=== PATIENT | female | born 1965 | race Caucasian/White ===

== ENCOUNTER → 2016-06-07 | Day surgery (SDC) | payer OTHER | LOC: RAD 08:39 | PROVIDERS: ATTEND Preventive Medicine Undersea and Hyperbaric Medicine | PROC: 05HB33Z Insertion of Infusion Device into Right Basilic Vein, Percutaneous Approach (ICD-10-PCS; principal; 2016-06-07) | DX: L97.424 Non-pressure chronic ulcer of left heel and midfoot with necrosis of bone (principal) | CPT/HCPCS: 36569; 77001; 76937; J1642 ==

== ENCOUNTER → 2016-06-10 | Outpatient (CLI) | payer OTHER | LOC: RAD 14:27 | PROVIDERS: ATTEND Preventive Medicine Undersea and Hyperbaric Medicine | DX: L97.424 Non-pressure chronic ulcer of left heel and midfoot with necrosis of bone (principal) | CPT/HCPCS: 82565; 73720; A9576 ==

== ENCOUNTER → 2016-06-11 | Outpatient (CLI) | payer OTHER ==
--- NOTE | 2016-06-12 12:27 | XCELERA REPORT ---
[address] [address] Lower Extremity Arterial Evaluation Name: RERE SLATER Age: 51 yrs Gender: Female : 1965 Patient Status: Outpatient Patient Location: Study Date: 06/11/2016 01:19 PM Procedure: A color flow and duplex scan of the lower extremity arteries was performed bilaterally with velocity and waveform anaylsis. Ankle brachial indicies performed. Reason For Study: CHRONIC ULCER LT HEEL/ MIDFOOT NECROSIS Ordering Physician: TOMAS HOWELL Performed By: Betty Phillips Measurements and Calculations Right Left OUTSIDE OPERATOR PSV 86.6 100.9 cm/sec Prox PFA PSV -51.9 -58.1 cm/sec Prox SFA PSV 64.6 83.3 cm/sec Mid SFA PSV -69.0 -111.4 cm/sec Dist SFA PSV -79.9 -98.7 cm/sec Prox Pop A PSV 49.2 80.0 cm/sec Dist AXEL PSV 56.9 108.6 cm/sec Dist WORKPLACE RELATIONS ADVISER PSV 59.0 106.4 cm/sec Anatoliy Pedis PSV 60.1 -92.6 cm/sec Right Side Arterial Evaluation Normal velocity, waveform and triphasic flow are present, from the Common Femoral artery down to the infrageniculate vessels. The ankle-brachial index is 1.20. 0 % stenosis is noted at the Femoral artery. Diffuse intimal calcification noted. Left Side Arterial Evaluation Normal velocity, waveform and triphasic flow are present, from the Common Femoral artery down to the infrageniculate vessels. The ankle-brachial index is 1.25. 0-19 % stenosis is noted at the Femoral artery. Diffuse intimal calcification noted. Interpretation Summary No hemodynamically significant lesions in the bilateral lower extremities, on duplex imaging, at rest. In spite of Physiologically normal study, diffuse intimal calcification is present suggesting arteriosclerosis. : TOMAS HOWELL > Francis hCavez
== END ==
LOC: SP 12:25
PROVIDERS: ATTEND Preventive Medicine Undersea and Hyperbaric Medicine
DX: L97.424 Non-pressure chronic ulcer of left heel and midfoot with necrosis of bone (principal)
CPT/HCPCS: 93925

== ENCOUNTER 2016-06-26 10:46 | Emergency (ER) | payer OTHER ==
[2016-06-26] MEDS ORDERED: DEXTROSE 50%-WATER 25 GM/50 ML DISP.SYRIN IV ONE (10:59)
--- NOTE | 2016-06-26 11:03 | ER Document Report ---
ED General - General Stated Complaint: ALTERED MENTAL STATUS Time seen by provider: 11:00 Mode of Arrival: Medic Information source: Emergency Med Personnel Notes: 51-year-old female with a history of diabetes, left diabetic foot ulcer ( currently receiving hyperbaric treatments and IV antibiotics), orthostatic hypotension, bipolar affective disorder. The patient was on her way to the wound care clinic. She became unresponsive in the car in the parking lot. EMS was called to the scene and the patient had a fingerstick of 83. Patient was given half amp of D50 and transported to the ER. She continues to have an altered mental status. Primary care physician: [facility] TRAVEL OUTSIDE OF THE [place] IN LAST 30 DAYS: No - HPI Onset: Just prior to arrival Onset/Duration: Sudden Quality of pain: No pain Severity: None Pain Level: Denies Associated symptoms: Weakness. denies: Chills, Fever Exacerbated by: Denies Relieved by: Denies Similar symptoms previously: Yes Recently seen / treated by doctor: Yes - Related Data Allergies/Adverse Reactions: amoxicillin Allergy (Verified 06/26/16 11:14) clindamycin Allergy (Verified 06/26/16 11:14) Penicillins Allergy (Verified 06/26/16 11:14) Past Medical History - General Information source: Patient - Social History Smoking Status: Current Every Day Smoker Cigarette use (# per day): Yes - 1 pack per day Chew tobacco use (# tins/day): No Smoking Education Provided: No Frequency of alcohol use: None Drug Abuse: None Lives with: Family Family History: Reviewed & Not Pertinent Patient has suicidal ideation: No Patient has homicidal ideation: No - Past Medical History Cardiac Medical History: Denies: Hx Coronary Artery Disease, Hx Heart Attack, Hx Hypertension Pulmonary Medical History: Reports: Hx Pneumonia Denies: Hx Asthma, Hx Bronchitis, Hx COPD Neurological Medical History: Reports: Hx Seizures - "hypoglycemic seizure". Denies: Hx Cerebrovascular Accident Endocrine Medical History: Reports: Hx Diabetes Mellitus Type 2 Renal/ Medical History: Reports: Other - Chronic kidney disease Malignancy Medical History: Reports: None GI Medical History: Reports: None Musculoskeltal Medical History: Denies Hx Arthritis Skin Medical History: Reports None Psychiatric Medical History: Reports: None Traumatic Medical History: Reports: None Infectious Medical History: Reports: None Past Surgical History: Reports: Other - Left foot surgery Review of Systems - Review of Systems Notes: Review of systems: Constitutional: Denies fever, chills. EENT: Denies ear pain, sinus tenderness, throat pain, throat swelling. Cardiovascular: Denies chest pain, palpitations, dyspnea or edema. Respiratory: Denies wheezing, cough, hemoptysis. Abdomen: Denies abdominal pain, nausea, vomiting, diarrhea. Denies BRBPR or melena. Genitourinary: Denies dysuria, pyuria, hematuria, flank pain. Musculoskeletal: denies joint pain or swelling, denies back pain. Neurologic: See H&P Skin: Denies rash, lesions. Constitutional: denies: Chills, Fever Physical Exam - Vital signs Vitals: Pulse Resp BP Pulse Ox 81 14 132/79 H 98 06/26/16 10:52 06/26/16 10:52 06/26/16 10:52 06/26/16 10:52 Notes: Physical exam: GENERAL: 51-year-old female, altered mental status: nonverbal. The patient will open her eyes on command. The patient will move all 4 extremities on command. Fingerstick is 65. HEAD: Atraumatic, normocephalic. EYES: Pupils equal round and reactive to light, extraocular movements intact, sclera anicteric, conjunctiva are normal. ENT: TMs normal, nares patent, oropharynx clear without exudates. Moist mucous membranes. NECK: Normal range of motion, supple without lymphadenopathy or JVD. LUNGS: Breath sounds clear to auscultation bilaterally and equal. No wheezes rales or rhonchi. HEART: Regular rate and rhythm without murmurs, rubs or gallops. ABDOMEN: Soft, normoactive bowel sounds. No tenderness to palpation. No guarding, no rebound. No masses appreciated. EXTREMITIES: Normal range of motion, no pitting or edema. No clubbing or cyanosis. NEUROLOGICAL: Cranial nerves II through XII grossly intact. Normal speech, normal gait. PSYCH: Normal mood, normal affect. SKIN: Warm, Dry, normal turgor, no rashes or lesions noted. Course - Vital Signs Vital signs: Temp Pulse Resp BP Pulse Ox 81 13 172/103 H 97 06/26/16 10:52 06/26/16 17:01 06/26/16 17:01 06/26/16 17:01 - Laboratory Result Diagrams: 06/26/16 11:15 06/26/16 11:15 Laboratory results interpreted by me: 06/26/16 06/26/16 06/26/16 10:57 11:15 11:15 Hgb 10.6 L Hct 33.2 L RDW 17.1 H Est GFR (Non-Af Amer) 58 L Glucose 163 H POC Glucose 65 L Total Protein 6.1 L Albumin 2.8 L - Diagnostic Test Radiology reviewed: Image reviewed, Reports reviewed - CT shows no acute bleed or stroke. Chest x-ray shows no infiltrates or effusions. - EKG Interpretation by Me Rate: Normal Rhythm: NSR - EKG shows normal sinus rhythm with a ventricular rate of 79, no acute ST-T wave changes. Discharge - Discharge Clinical Impression: hypoglycemic episode, Pre hypertension Condition: Stable Disposition: HOME, SELF-CARE Additional Instructions: Recommendations: Rest, drink plenty of fluids, advance diet as tolerated. Continue current medicines. Follow-up with [facility] as planned: Bring a copy of today's labs with you when you go. As we discussed, your blood pressure was elevated in the ER. You are prone to episodes of low blood pressure so that a blood pressure medicine may not be right for you (it may cause more problems than benefits), follow-up with your primary care doctor for repeat blood pressure check and you can discuss it with the doctor at the time. Forms: Elevated Blood Pressure Referrals: SAFIA MCDONNELL PA [Primary Care Provider] - Follow up in 3-5 days
[2016-06-26 11:32] LABS: ABSOLUTE EOSINOPHILS # (AUTO) 0.1 10^3/uL (0.0-0.6); ABSOLUTE LYMPHOCYTES (AUTO) 1.1 10^3/uL (0.5-4.7); ABSOLUTE MONOCYTES (AUTO) 0.5 10^3/uL (0.1-1.4); BASOPHILS % (AUTO) 0.9 % (0-2); EOSINOPHILS % (AUTO) 2.2 % (0-6); HEMATOCRIT 33.2 % (36.0-47.0); HEMOGLOBIN 10.6 g/dL (12.0-15.5); HGB HCT DIFFERENCE -1.4; LYMPHOCYTES % (AUTO) 19.1 % (13-45); MEAN CORPUSCULAR VOLUME 84 fl (80-97); MONOCYTES % (AUTO) 8.3 % (3-13); RED BLOOD COUNT 3.94 10^6/uL (3.72-5.28); RED CELL DISTRIBUTION WIDTH 17.1 % (11.5-14.0); SEGMENTED NEUTROPHILS % (AUTO) 69.5 % (42-78); WHITE BLOOD COUNT 5.7 10^3/uL (4.0-10.5)
[2016-06-26 11:50] LABS: ALANINE AMINOTRANSFERASE 13 U/L (9-52); ALBUMIN 2.8 g/dL (3.5-5.0); ALKALINE PHOSPHATASE 86 U/L (38-126); ANION GAP 9 (5-19); ASPARTATE AMINO TRANSFERASE 17 U/L (14-36); BILIRUBIN,TOTAL 0.4 mg/dL (0.2-1.3); BLOOD UREA NITROGEN 11 mg/dL (7-20); CALCIUM 8.8 mg/dL (8.4-10.2); CARBON DIOXIDE 26 mmol/L (22-30); CHLORIDE 105 mmol/L (98-107); CREATINE KINASE 43 U/L (30-135); GLUCOSE 163 mg/dL (75-110); SODIUM 139.9 mmol/L (137-145); TOTAL PROTEIN 6.1 g/dL (6.3-8.2)
[2016-06-26] MEDS ORDERED: NORMAL SALINE 1000 ML 1,000 ML IV PRN (12:39)
[2016-06-26 12:53] LABS: CREATINE KINASE MB 1.91 ng/mL (<4.55)
[2016-06-26 12:56] LABS: TROPONIN I < 0.012 ng/mL
[2016-06-26 17:17] VITALS: BP 172/103
--- NOTE | 2016-06-27 08:16 | EKG REPORT ---
SEVERITY:- BORDERLINE ECG - SINUS RHYTHM BORDERLINE T ABNORMALITIES, INFERIOR LEADS BORDERLINE PROLONGED QT INTERVAL : Confirmed by: Alexsandra Wong MD 27-Jun-2016 08:16:06
== END 2016-06-26 17:19 | disposition home or self-care (01) ==
LOC: ER 10:46
DX: E11.649 Type 2 diabetes mellitus with hypoglycemia without coma (principal); R03.0 Elevated blood-pressure reading, without diagnosis of hypertension; R41.82 Altered mental status, unspecified; R53.1 Weakness; F17.210 Nicotine dependence, cigarettes, uncomplicated; N18.9 Chronic kidney disease, unspecified; Z88.0 Allergy status to penicillin; Z88.3 Allergy status to other anti-infective agents
CPT/HCPCS: 93005; 99285; 96374; 36415; 82553; 82962; 82550; 85025; 80053; 84484; 71010; 70450; 93010; J3490

== ENCOUNTER 2016-07-03 13:41 | Emergency (ER) | payer OTHER ==
[2016-07-03 13:47] VITALS: BP 94/60
--- NOTE | 2016-07-03 13:51 | ER Document Report ---
ED Medical Screen (RME) - General Stated Complaint: BLOOD PRESSURE PROBLEM Notes: 51 yo female sent from ambulatory surgery for low blood pressure. pt was to receive antibiotics for wound on left foot. Dr Manley told nurse not to give abx because of HTN and have pt evaluated in ED. pt feeling light headed, denies pain. no vomiting. Pt has DM. [facility] TRAVEL OUTSIDE OF THE [place] IN LAST 30 DAYS: No - Related Data Allergies/Adverse Reactions: clindamycin Allergy (Verified 06/26/16 11:14) Past Medical History - Past Medical History Cardiac Medical History: Denies: Hx Coronary Artery Disease, Hx Heart Attack, Hx Hypertension Pulmonary Medical History: Reports: Hx Pneumonia Denies: Hx Asthma, Hx Bronchitis, Hx COPD Neurological Medical History: Reports: Hx Seizures - "hypoglycemic seizure". Denies: Hx Cerebrovascular Accident Endocrine Medical History: Reports: Hx Diabetes Mellitus Type 1 Musculoskeltal Medical History: Denies Hx Arthritis Psychiatric Medical History: Reports: Hx Bipolar Disorder, Hx Depression Past Surgical History: Reports: Hx Vascular Surgery - RUE Picc Physical Exam - Vital signs Vitals: Temp Pulse Resp BP Pulse Ox 97.8 F 85 18 94/60 L 100 07/03/16 13:45 07/03/16 13:45 07/03/16 13:45 07/03/16 13:45 07/03/16 13:45 Course - Vital Signs Vital signs: Temp Pulse Resp BP Pulse Ox 97.8 F 85 18 94/60 L 100 07/03/16 13:45 07/03/16 13:45 07/03/16 13:45 07/03/16 13:45 07/03/16 13:45
[2016-07-03 14:22] LABS: ABSOLUTE MONOCYTES (AUTO) 0.4 10^3/uL (0.1-1.4); HEMOGLOBIN 10.5 g/dL (12.0-15.5)
[2016-07-03 14:27] LABS: ALANINE AMINOTRANSFERASE 25 U/L (9-52); ALBUMIN 3.4 g/dL (3.5-5.0); ALKALINE PHOSPHATASE 124 U/L (38-126); ANION GAP 11 (5-19); ASPARTATE AMINO TRANSFERASE 16 U/L (14-36); BILIRUBIN,TOTAL 0.5 mg/dL (0.2-1.3); BLOOD UREA NITROGEN 16 mg/dL (7-20); CALCIUM 9.3 mg/dL (8.4-10.2); CARBON DIOXIDE 27 mmol/L (22-30); CHLORIDE 100 mmol/L (98-107); CREATININE RESULT 1.24 mg/dL (0.52-1.25); GLUCOSE 221 mg/dL (75-110); POTASSIUM 4.9 mmol/L (3.6-5.0); SODIUM 138.2 mmol/L (137-145); TOTAL PROTEIN 6.8 g/dL (6.3-8.2)
[2016-07-03 14:44] LABS: ABSOLUTE BASOPHILS # (AUTO) 0.1 10^3/uL (0.0-0.2); ABSOLUTE EOSINOPHILS # (AUTO) 0.2 10^3/uL (0.0-0.6); ABSOLUTE LYMPHOCYTES (AUTO) 1.8 10^3/uL (0.5-4.7); ABSOLUTE NEUT (AUTO) 3.8 10^3/uL (1.7-8.2); EOSINOPHILS % (AUTO) 3.3 % (0-6); HEMATOCRIT 32.8 % (36.0-47.0); HGB HCT DIFFERENCE -1.3; LYMPHOCYTES % (AUTO) 28.9 % (13-45); MEAN CORPUSCULAR HEMOGLOBIN 27.2 pg (27.0-33.4); MEAN CORPUSCULAR HGB CONC 32.2 g/dL (32.0-36.0); MEAN CORPUSCULAR VOLUME 85 fl (80-97); MONOCYTES % (AUTO) 6.5 % (3-13); RED BLOOD COUNT 3.88 10^6/uL (3.72-5.28); RED CELL DISTRIBUTION WIDTH 17.2 % (11.5-14.0); SEGMENTED NEUTROPHILS % (AUTO) 60.3 % (42-78); WHITE BLOOD COUNT 6.3 10^3/uL (4.0-10.5)
[2016-07-03] MEDS ORDERED: NORMAL SALINE 1000 ML 1,000 ML IV ONE (16:16)
--- NOTE | 2016-07-03 16:23 | ER Document Report ---
ED Blood Pressure Problem - General Chief Complaint: Low Blood Pressure Stated Complaint: BLOOD PRESSURE PROBLEM Time seen by provider: 16:17 Mode of Arrival: Wheelchair Information source: Patient Notes: 51-year-old female presents to ED for low blood pressure. She states she was sent by [facility] surgery for low blood pressure states she cannot get her antibiotics for her foot ulcer due to her blood pressure being too low. She states she has been lightheaded at times no nausea no vomiting states she's taken her medicines as appropriate. TRAVEL OUTSIDE OF THE [place] IN LAST 30 DAYS: No - HPI Patient complains to provider of: Low blood pressure Onset: Other - Last couple days Onset/Duration: Intermittent Quality of pain: No pain Severity: None Pain Level: Denies Pt currently taking medication for problem: No - states she sometimes has high blood pressure pressure sometimes she has low Associated symptoms: Dizziness Similar symptoms previously: Yes Recently seen / treated by doctor: Yes - Related Data Allergies/Adverse Reactions: clindamycin Allergy (Verified 07/03/16 13:47) Past Medical History - General Information source: Patient - Social History Smoking Status: Never Smoker Chew tobacco use (# tins/day): No Frequency of alcohol use: None Drug Abuse: None Lives with: Family Family History: Reviewed & Not Pertinent Patient has suicidal ideation: No Patient has homicidal ideation: No - Past Medical History Cardiac Medical History: Reports: None Pulmonary Medical History: Reports: Hx Pneumonia EENT Medical History: Reports: None Neurological Medical History: Reports: Hx Seizures - "hypoglycemic seizure" Endocrine Medical History: Reports: Hx Diabetes Mellitus Type 1 Renal/ Medical History: Reports: None Malignancy Medical History: Reports: None GI Medical History: Reports: None Musculoskeltal Medical History: Reports None Skin Medical History: Reports Other - Diabetic ulcer to the left foot on room back at this time Psychiatric Medical History: Reports: Hx Bipolar Disorder, Hx Depression Traumatic Medical History: Reports: None Infectious Medical History: Reports: None Past Surgical History: Reports: Hx Vascular Surgery - RUE Picc Review of Systems - Review of Systems Constitutional: No symptoms reported EENT: No symptoms reported Cardiovascular: Dizziness, Other - Low blood pressure Respiratory: No symptoms reported Gastrointestinal: No symptoms reported Genitourinary: No symptoms reported Female Genitourinary: No symptoms reported Musculoskeletal: No symptoms reported Skin: No symptoms reported Hematologic/Lymphatic: No symptoms reported Neurological/Psychological: No symptoms reported -: Yes All other systems reviewed and negative Physical Exam - Vital signs Vitals: Temp Pulse Resp BP Pulse Ox 97.8 F 85 18 94/60 L 100 07/03/16 13:45 07/03/16 13:45 07/03/16 13:45 07/03/16 13:45 07/03/16 13:45 Interpretation: Hypotensive Notes: Blood pressure 103/67 pulse 83 pulse ox 100% temp 97.6 respirations 20 - General General appearance: Appears well, Alert - HEENT Head: Normocephalic, Atraumatic Eyes: Normal Pupils: PERRL - Respiratory Respiratory status: No respiratory distress Chest status: Nontender Breath sounds: Normal Chest palpation: Normal - Cardiovascular Rhythm: Regular Heart sounds: Normal auscultation Murmur: No - Abdominal Inspection: Normal Distension: No distension Bowel sounds: Normal Tenderness: Nontender Organomegaly: No organomegaly - Back Back: Normal, Nontender - Extremities General upper extremity: Normal inspection, Nontender, Normal color, Normal ROM , Normal temperature General lower extremity: Normal inspection, Nontender, Normal color, Normal ROM , Normal temperature, Normal weight bearing. No: Araceli's sign - Neurological Neuro grossly intact: Yes Cognition: Normal Orientation: AAOx4 [place] Coma Scale Eye Opening: Spontaneous Lillie Coma Scale Verbal: Oriented [place] Coma Scale Motor: Obeys Commands Lillie Coma Scale Total: 15 Speech: Normal Motor strength normal: LUE, RUE, LLE, RLE Sensory: Normal - Psychological Associated symptoms: Normal affect, Normal mood - Skin Skin Temperature: Warm Skin Moisture: Dry Skin Color: Normal Course - Re-evaluation Re-evalutation: 07/03/16 18:47 Discussed the residual urine with Dr. Braxton. Patient had some 750 mL of urine after voiding. Dr Braxton discussed the patient follow-up with his primary doctor in the morning to decide whether they wanted to do self-catheterization or a Muñoz. We'll send a copy of labs home with patient to follow-up - Vital Signs Vital signs: Temp Pulse Resp BP Pulse Ox 97.8 F 85 18 94/60 L 100 07/03/16 13:45 07/03/16 13:45 07/03/16 13:45 07/03/16 13:45 07/03/16 13:45 - Laboratory Result Diagrams: 07/03/16 13:50 07/03/16 13:50 Laboratory results interpreted by me: 07/03/16 07/03/16 07/03/16 13:50 13:50 18:21 Hgb 10.5 L Hct 32.8 L RDW 17.2 H Est GFR ( Amer) 55 L Est GFR (Non-Af Amer) 45 L Glucose 221 H Albumin 3.4 L Urine Glucose (UA) >=500 H Discharge - Discharge Clinical Impression: Urinary retention Hypotension Qualifiers: Hypotension type: unspecified hypotension type Qualified Code(s): I95.9 - Hypotension, unspecified Condition: Stable Disposition: HOME, SELF-CARE Additional Instructions: Hypotension Your blood pressure is low. Low blood pressure can make you feel weak, lightheaded, and even make you pass out. Low blood pressure can be caused by dehydration or blood loss. Problems with the heart, kidneys, or blood vessels can cause hypotension. Certain medications can make your blood pressure abnormally low. Infection can lower blood pressure. In many cases, the person is totally healthy, but for unknown reasons, the blood pressure falls when they stand up. This is called benign orthostatic hypotension. The treatment of low blood pressure depends on the severity of the symptoms , and on the underlying cause. Sometimes it's not possible to identify a cause. At this time, it doesn't appear that the problem is serious enough to require hospitalization. Medicines that could be contributing to the problem can be withheld or reduced in dosage if your doctor approves. Get plenty of fluids. Eat a healthy diet. Be careful to stand up slowly. If you feel suddenly lightheaded or if your vision goes marx, sit or lie down at once. Don't drive or operate machinery until the symptoms are under control. Return or call the doctor if you develop fainting or severe dizziness, severe weakness, problems with vision, chest pain, shortness of breath, fever, or confusion. Urinary Retention Urinary retention is inability to empty the bladder. It can result from a urine infection, or from mechanical problems such as an enlarged prostate gland or swelling of the urethra. Drugs or alcohol can also lead to urine retention. The condition is usually treated by passage of a catheter. If the physician thinks the problem will continue, the catheter may be left in place for a few days. Sometimes drugs are used to stimulate the bladder if the physician feels that inadequate bladder contraction is the cause. If the condition leading to the retention is a chronic one, such as an enlarged prostate, you will be referred to a specialist for further care. Call the physician or return if you develop fever, flank or back pain, pain on urination, or recurrent difficulty passing the urine. FOLLOW-UP CARE: If you have been referred to a physician for follow-up care, call the physician s office for an appointment as you were instructed or within the next two days. If you experience worsening or a significant change in your symptoms, notify the physician immediately or return to the Emergency Department at any time for re-evaluation.
[2016-07-03 19:01] LABS: APPEARANCE,URINE SLIGHTLY-CLOUDY; BILIRUBIN,URINE NEGATIVE (NEGATIVE); GLUCOSE, URINE >=500 mg/dL (NEGATIVE); KETONES,URINE NEGATIVE (NEGATIVE); LEUKOCYTE ESTERASE,URINE NEGATIVE (NEGATIVE); NITRITE,URINE NEGATIVE (NEGATIVE); PROTEIN,URINE NEGATIVE (NEGATIVE); URINE SPECIFIC GRAVITY 1.006; UROBILINOGEN,URINE NEGATIVE mg/dL (<2.0)
== END 2016-07-03 19:34 | disposition home or self-care (01) ==
LOC: ER 13:41
DX: R33.9 Retention of urine, unspecified (principal); I95.9 Hypotension, unspecified; R42 Dizziness and giddiness; E10.9 Type 1 diabetes mellitus without complications
CPT/HCPCS: 99284; 96360; 51701; 36415; 85025; 80053; 81001; J7030

== ENCOUNTER → 2016-07-16 | Outpatient (CLI) | payer OTHER | LOC: EDBD → RAD 14:25 | PROVIDERS: ATTEND Preventive Medicine Undersea and Hyperbaric Medicine | DX: E11.621 Type 2 diabetes mellitus with foot ulcer (principal); L97.522 Non-pressure chronic ulcer of other part of left foot with fat layer exposed ==

== ENCOUNTER → 2016-08-14 | Outpatient (CLI) | payer OTHER | LOC: RAD 12:34 | PROVIDERS: ATTEND Preventive Medicine Undersea and Hyperbaric Medicine | DX: L97.522 Non-pressure chronic ulcer of other part of left foot with fat layer exposed (principal) ==

== ENCOUNTER → 2016-10-03 | Outpatient (CLI) | payer OTHER ==
[2016-10-03 11:03] LABS: ABSOLUTE EOSINOPHILS # (AUTO) 0.2 10^3/uL (0.0-0.6); ABSOLUTE LYMPHOCYTES (AUTO) 1.4 10^3/uL (0.5-4.7); ABSOLUTE MONOCYTES (AUTO) 0.4 10^3/uL (0.1-1.4); ABSOLUTE NEUT (AUTO) 3.7 10^3/uL (1.7-8.2); BASOPHILS % (AUTO) 0.7 % (0-2); EOSINOPHILS % (AUTO) 2.7 % (0-6); HEMATOCRIT 33.7 % (36.0-47.0); HEMOGLOBIN 10.4 g/dL (12.0-15.5); HGB HCT DIFFERENCE -2.5; LYMPHOCYTES % (AUTO) 24.4 % (13-45); MEAN CORPUSCULAR HEMOGLOBIN 25.5 pg (27.0-33.4); MEAN CORPUSCULAR VOLUME 82 fl (80-97); MONOCYTES % (AUTO) 6.7 % (3-13); SEGMENTED NEUTROPHILS % (AUTO) 65.5 % (42-78); WHITE BLOOD COUNT 5.7 10^3/uL (4.0-10.5)
[2016-10-03 11:25] LABS: ALANINE AMINOTRANSFERASE 25 U/L (9-52); ALBUMIN 3.5 g/dL (3.5-5.0); ALKALINE PHOSPHATASE 118 U/L (38-126); ANION GAP 9 (5-19); ASPARTATE AMINO TRANSFERASE 19 U/L (14-36); BILIRUBIN,DIRECT 0.3 mg/dL (0.0-0.4); BILIRUBIN,TOTAL 0.5 mg/dL (0.2-1.3); BLOOD UREA NITROGEN 26 mg/dL (7-20); C-REACTIVE PROTEIN 13.4 mg/L (<10.0); CALCIUM 9.5 mg/dL (8.4-10.2); CARBON DIOXIDE 25 mmol/L (22-30); CHLORIDE 107 mmol/L (98-107); CREATININE RESULT 1.22 mg/dL (0.52-1.25); GLUCOSE 237 mg/dL (75-110); POTASSIUM 4.9 mmol/L (3.6-5.0); SODIUM 140.9 mmol/L (137-145); TOTAL PROTEIN 7.5 g/dL (6.3-8.2)
[2016-10-03 11:41] LABS: ERYTHROCYTE SEDIMENTATION RATE 50 mm/hr (0-30)
== END ==
LOC: WC 10:08
PROVIDERS: ATTEND Nurse Practitioner Family
DX: E11.621 Type 2 diabetes mellitus with foot ulcer (principal); L97.422 Non-pressure chronic ulcer of left heel and midfoot with fat layer exposed
CPT/HCPCS: 36415; 80053; 83036; 85025; 85652; 86140

== ENCOUNTER → 2016-10-09 | Outpatient (CLI) | payer OTHER ==
--- NOTE | 2016-10-09 14:00 | RADIOLOGY REPORT (SQ) ---
EXAM DESCRIPTION: FOOT LEFT COMPLETE COMPLETED DATE/TIME: 10/09/2016 12:45 pm REASON FOR STUDY: NON-PRS CHR ULCER OF LEFT HEEL AND MIDFOOT W FAT LAYER EXPOS (L97.422) COMPARISON: 08/14/2016. NUMBER OF VIEWS: Three views of the left foot. LIMITATIONS: Limiting external artifact. Bone detail obscured. FINDINGS: Osteopenia. No gross fracture, subluxation or dislocation. Persistent presumed ulcer and gas in the soft tissues underlying the calcaneus. Mild overlying periosteal reaction is suggested c onsistent with chronic osteomyelitis. Doubt progressive bone loss. OTHER: No other significant finding. IMPRESSION: As above. TECHNICAL DOCUMENTATION: JOB ID: [id number]
== END ==
LOC: RAD 12:27
PROVIDERS: ATTEND Nurse Practitioner Family
DX: L97.422 Non-pressure chronic ulcer of left heel and midfoot with fat layer exposed (principal); M85.872 Other specified disorders of bone density and structure, left ankle and foot

== ENCOUNTER → 2016-10-22 | Outpatient (CLI) | payer OTHER ==
--- NOTE | 2016-10-22 13:16 | RADIOLOGY REPORT (SQ) ---
EXAM DESCRIPTION: MRI LT LOWER EXTREMITY WITHOUT COMPLETED DATE/TIME: 10/22/2016 11:57 am REASON FOR STUDY: NON-PRESSURE CHRONIC ULCER OF LEFT HEEL COMPARISON: MRI 06/10/2016 LEFT FOOT FILMS 10/09/2016, 08/14/2016, 07/16/2016 TECHNIQUE: MRI of the left calcaneus was performed with axial coronal and sagittal T1 and fat-sat T2 images LIMITATIONS: None. FINDINGS: Along the medial left heel soft tissues, an ulcer with a overlying bandages present. Ulce r measures about 3 x 4 cm in size. Deep to the ulcer, a 2.6 cm diameter area of bony erosion is seen along the cortex of the calcaneus. This extends into the medial edge of the Achilles attachment and medial most edge of the plantar fascia attachment. Deep to the calcaneal bony erosion there is martha a throughout the posterior half of the calcaneus, similar in extent as compared to 06/10/2016. There is a small amount of fluid in the posterior subtalar joint, and physiologic fluid in the tibiot alar joint. Small amount of fluid in the retrocalcaneal bursa. No other bony edema worrisome for os teomyelitis. No soft tissue abscess or fluid collection. Incidental finding of a longitudinal split in the peroneus brevis tendon proximal to, at the level of , and just distal to the lateral malleolus. There is also posterior tibial tendinopathy distal to th e medial malleolus, from the malleolus to the navicular. IMPRESSION: Persistent left heel soft tissue ulcer with underlying bony erosion of the cortical surf beni of the calcaneus. Amount of calcaneal marrow edema is similar compared to territory. TECHNICAL DOCUMENTATION: JOB ID: [id number] [employer]- All Rights Reserved
== END ==
LOC: RAD 09:56
PROVIDERS: ATTEND Preventive Medicine Undersea and Hyperbaric Medicine
DX: L97.423 Non-pressure chronic ulcer of left heel and midfoot with necrosis of muscle (principal)

== ENCOUNTER → 2016-12-12 | Outpatient (CLI) | payer OTHER ==
--- NOTE | 2016-12-13 12:06 | WOMENS IMAGING REPORT ---
EXAM DESCRIPTION: BILAT SCREENING MAMMO W/CAD COMPLETED DATE/TIME: 12/12/2016 1:32 pm REASON FOR STUDY: SCREENING MAMMO Z12.31 ENCNTR SCREEN MAMMOGRAM FOR MALIGNANT NEOPLASM OF SABRINA COMPARISON: None. TECHNIQUE: Standard craniocaudal and mediolateral oblique views of each breast recorded using digita l acquisition. LIMITATIONS: None. FINDINGS: No masses, calcifications or architectural distortion. No areas of suspicion. Read with the assistance of CAD. .[facility] - R2 Cenova Version 1.3 .[facility] - R2 Cenova Version 1.3 .[facility] - R2 Cenova Version 2.4 .[facility] - R2 Cenova Version 2.4 .[facility] - R2 [employer] Version 9.2 IMPRESSION: NORMAL MAMMOGRAM. BIRADS 1. BREAST DENSITY: b. There are scattered areas of fibroglandular density. BIRAD: 1 NEGATIVE RECOMMENDATION: ROUTINE SCREENING COMMENT: The patient has been notified of the results by letter per SA requirements. Additional no tification policies are in place for contacting patient with suspicious or incomplete findings. Quality ID #[id number]: The [employer] recommends an annual screening mammogram for women aged 40 years or over. This facility utilizes a reminder system to ensure that all patients receive reminder letters, and/or direct phone calls for appointments. This includes reminders for routine scr eening mammograms, diagnostic mammograms, or other Breast Imaging Interventions when appropriate. Th is patient will be placed in the appropriate reminder system. The [employer] (A[employer]) has developed recommendations for screening MRI of the breast s in certain patient populations, to be used in conjunction with mammography. Breast MRI surveillanc e may be appropriate for women with more than 20% lifetime risk of developing breast cancer as deter mined by genetic testing, significant family history of the disease, or history of mantle radiation f or Hodgkins Disease. ACR Practice Guidelines 2008. TECHNICAL DOCUMENTATION: FINDING NUMBER: (1) ASSESSMENT: (1) JOB ID: [id number] [email or web address]- All Rights Reserved
== END ==
LOC: WI 12:37
PROVIDERS: ATTEND Physician Assistant
DX: Z12.31 Encounter for screening mammogram for malignant neoplasm of breast (principal)
CPT/HCPCS: 77067; G0202

== ENCOUNTER → 2017-05-27 | Outpatient (CLI) | payer OTHER ==
--- NOTE | 2017-05-27 13:17 | RADIOLOGY REPORT (SQ) ---
EXAM DESCRIPTION: FOOT LEFT COMPLETE COMPLETED DATE/TIME: 05/27/2017 12:46 pm REASON FOR STUDY: ULCER FOOT WITH DIABETES (E11.621) E11.621 TYPE 2 DIABETES MELLITUS WITH FOOT ULC ER COMPARISON: 08/14/2016, 10/09/2016 left foot films NUMBER OF VIEWS: Three views. TECHNIQUE: AP, lateral and oblique radiographic images acquired of the left foot. LIMITATIONS: None. FINDINGS: MINERALIZATION: Osteoporotic BONES: There is a healing stress fracture of the midshaft 2nd metatarsal with surrounding bony bridgi ng callus. Patient has a 6 to 7 cm plantar calcaneal ulcer with calcaneal bony surface exposed. Since the prior plain films in 10/09/2016, patient appears to have undergone a bone biopsy with lucency in the calcan eus on lateral view. There is bony sclerosis along the plantar aspect of the calcaneus deep to the u lcer. Further resorption of the plantar calcaneal weight-bearing surface has occurred since since 10/09/2016. JOINTS: No effusions. SOFT TISSUES: Plantar soft tissue ulcer over the calcaneus, with bone exposed. OTHER: No other significant finding. IMPRESSION: Persistent plantar calcaneal ulcer with sclerosis and bony resorption of the weight-bear ing plantar surface calcaneus Healing 2nd metatarsal stress fracture TECHNICAL DOCUMENTATION: JOB ID: [id number] [employer]- All Rights Reserved
== END ==
LOC: RAD 12:13
PROVIDERS: ATTEND Preventive Medicine Undersea and Hyperbaric Medicine
DX: E11.621 Type 2 diabetes mellitus with foot ulcer (principal); M84.375D Stress fracture, left foot, subsequent encounter for fracture with routine healing

== ENCOUNTER 2017-10-08 20:14 | Emergency (ER) | payer OTHER ==
[2017-10-08] MEDS ORDERED: CIPROFLOXACIN HCL 500 MG TABLET PO ONE (23:43)
[2017-10-08] MEDS ORDERED: DOXYCYCLINE HYCLATE 100 MG TABLET PO ONE (23:43)
--- NOTE | 2017-10-08 23:46 | ER Document Report ---
ED General - General Chief Complaint: Wound Infection Stated Complaint: POSSIBLE INFECTION Time Seen by Provider: 10/08/17 23:30 Notes: Patient is a 52-year-old female who is a diabetic who presents with complaint of possible infection on her left lower extremity stump. She had a history of osteomyelitis of her left foot and lower leg. She therefore an amputation months ago. States she has been doing well until a few days ago she noticed a small red bump to start draining on the stump itself. She denies any fevers. No vomiting. No diarrhea. She is not currently on any antibiotics. No other complaints at this time. TRAVEL OUTSIDE OF THE [place] IN LAST 30 DAYS: No - Related Data Allergies/Adverse Reactions: clindamycin Allergy (Verified 07/03/16 13:47) Past Medical History - Social History Smoking Status: Unknown if Ever Smoked Frequency of alcohol use: None Drug Abuse: None Family History: Reviewed & Not Pertinent - Past Medical History Cardiac Medical History: Denies: Hx Coronary Artery Disease, Hx Heart Attack, Hx Hypertension Pulmonary Medical History: Reports: Hx Pneumonia Denies: Hx Asthma, Hx Bronchitis, Hx COPD Neurological Medical History: Reports: Hx Seizures - "hypoglycemic seizure". Denies: Hx Cerebrovascular Accident Endocrine Medical History: Reports: Hx Diabetes Mellitus Type 1 Renal/ Medical History: Denies: Hx Peritoneal Dialysis Musculoskeltal Medical History: Denies Hx Arthritis Psychiatric Medical History: Reports: Hx Bipolar Disorder, Hx Depression Past Surgical History: Reports: Hx Vascular Surgery - RUE Picc - Immunizations Hx Diphtheria, Pertussis, Tetanus Vaccination: - unk Review of Systems - Review of Systems Notes: My Normal Review Basic REVIEW OF SYSTEMS: CONSTITUTIONAL : Denies fever, chills, or sweats. Denies recent illness. EENT: Denies eye, ear, throat, or mouth pain or symptoms. Denies nasal or sinus congestion. RESPIRATORY: Denies cough, cold, or chest congestion. Denies shortness of breath, difficulty breathing, or wheezing. MUSCULOSKELETAL: Wound on left lower stump. SKIN: Denies rash or skin lesions. NEUROLOGICAL: Denies altered mental status or loss of consciousness. Denies headache. Denies weakness or paralysis or loss of use of either side. Denies problems with gait or speech. Denies sensory or motor loss. ALL OTHER SYSTEMS REVIEWED AND NEGATIVE. Physical Exam - Vital signs Vitals: Temp Pulse Resp BP Pulse Ox 97.3 F 83 18 117/96 H 98 10/08/17 21:06 10/08/17 21:06 10/08/17 21:06 10/08/17 21:06 10/08/17 21:06 - Notes Notes: General Appearance: Well nourished, alert, cooperative, no acute distress, no obvious discomfort. Vitals: reviewed, See vital signs table. Eyes: PERRL, EOMI, Conjuctiva clear Lungs: No wheezing, No rales, No rhonci, No accessory muscle use, good air exchange bilaterally. Heart: Normal rate, Regular rythm, No murmur, no rub Extremities: strength 5/5 in all extremities, good pulses in all extremities, patient has a small purulent type ulceration on this stump.. She had a small abscess or that ruptured and drained. There is no recurrent fluctuance. I did do a bedside ultrasound and there is no evidence of fluid pocket underneath the skin. There is a small amount of surrounding erythema. Skin: warm, dry, appropriate color, no rash Neuro: speech clear, oriented x 3, normal affect, responds appropriately to questions. Course - Re-evaluation Re-evalutation: 10/09/17 05:08 Patient looks very well. Her vital signs are completely normal. She has not had any fevers. She has what appeared to be a small abscess that ulcerated and ruptured on its own. She now has a 1 cm area of ulceration with 2-3 cm of surrounding erythema. Being she is a diabetic I think is appropriate to place her on antibiotics to cover for both Pseudomonas as well as staph and strep. I therefore placed on Doxy and Cipro. She is taking his medications in the past without any difficulty. I informed her she is follow-up with her doctor this Friday for close reevaluation and she must return to ER immediately if she has any fevers, feels unwell, spreading redness, or increasing swelling at the site of infection. Patient agrees with plan will be discharged home. Dictation of this chart was performed using voice recognition software; therefore, there may be some unintended grammatical errors. - Vital Signs Vital signs: Temp Pulse Resp BP Pulse Ox 97.5 F 79 15 107/62 99 10/09/17 00:15 10/09/17 00:15 10/09/17 00:15 10/09/17 00:15 10/09/17 00:15 Discharge - Discharge Clinical Impression: Cellulitis Qualifiers: Site of cellulitis: extremity Site of cellulitis of extremity: lower extremity Laterality: left Qualified Code(s): L03.116 - Cellulitis of left lower limb Condition: Good Disposition: HOME, SELF-CARE Additional Instructions: Please take the antibiotics as prescribed. Please remove the dressing in [address] a new clean dressing over the wound. Please follow up with your doctor on Friday for reevaluation. You must return to the ER immediately if you have fevers, spreading redness, increased swelling, or feel unwell in any way. You have been prescribed an antibiotic that is in the class of antibiotics called fluoroquinolones. On rare occasions these can cause weakness of the tendons. You should therefore avoid any type of heavy lifting or sporting activities while you are on this antibiotic and up to 1 week after stopping it. Prescriptions: Ciprofloxacin HCl [Cipro 500 mg Tablet] 500 mg PO BID #14 tablet Doxycycline Hyclate 100 mg PO BID #14 capsule Referrals: SAFIA MCDONNELL PA [Primary Care Provider] - 10/10/17
[2017-10-09 00:17] VITALS: BP 107/62
== END 2017-10-09 00:17 | disposition home or self-care (01) ==
LOC: ER 20:14
DX: L03.116 Cellulitis of left lower limb (principal); E10.9 Type 1 diabetes mellitus without complications; Z89.512 Acquired absence of left leg below knee
CPT/HCPCS: 87070; 87077; 87186; 87205; 99283

== ENCOUNTER 2017-12-28 18:24 | Emergency (ER) | payer OTHER ==
[2017-12-28] MEDS ORDERED: SULFAMETHOXAZOLE/TRIMETHOPRIM 800-160 MG TABLET PO ONE (18:51)
--- NOTE | 2017-12-28 18:55 | ER Document Report ---
ED Medical Screen (RME) - General Chief Complaint: Skin Sore(s) Stated Complaint: LEG PAIN Time Seen by Provider: 12/28/17 18:43 Mode of Arrival: Wheelchair Information source: Patient, Relative TRAVEL OUTSIDE OF THE [place] IN LAST 30 DAYS: No - HPI Patient complains to provider of: Painful bumps and swelling the left leg Onset: Other - 52-year-old female who presents for red swollen painful bumps over the left leg near her amputation site. She notes that this is similar to previous episode which she had which was attributed to MRSA for which she was treated with 2 antibiotics in the past and had subsequently cleared she been in her normal state of health until last few days in which time these red bumps began to swell 1 of them on the back of her leg began to drain a reasonable amount, she denies any fevers or chills abdominal pain diarrhea constipation dysuria rashes elsewhere. - Related Data Allergies/Adverse Reactions: clindamycin Allergy (Verified 07/03/16 13:47) Past Medical History - Social History Chew tobacco use (# tins/day): No Drug Abuse: None - Past Medical History Cardiac Medical History: Denies: Hx Coronary Artery Disease, Hx Heart Attack, Hx Hypertension Pulmonary Medical History: Reports: Hx Pneumonia Denies: Hx Asthma, Hx Bronchitis, Hx COPD Neurological Medical History: Reports: Hx Seizures - "hypoglycemic seizure". Denies: Hx Cerebrovascular Accident Endocrine Medical History: Reports: Hx Diabetes Mellitus Type 1 Renal/ Medical History: Denies: Hx Peritoneal Dialysis Musculoskeltal Medical History: Denies Hx Arthritis Psychiatric Medical History: Reports: Hx Bipolar Disorder, Hx Depression Past Surgical History: Reports: Hx Orthopedic Surgery - l bk amp-06/04/17, Hx Vascular Surgery - RUE Picc - Immunizations Hx Diphtheria, Pertussis, Tetanus Vaccination: - unk Physical Exam - Vital signs Vitals: Temp Pulse Resp BP Pulse Ox 98.2 F 79 18 85/54 L 100 12/28/17 18:48 12/28/17 18:48 12/28/17 18:48 12/28/17 18:48 12/28/17 18:48 Course - Re-evaluation Re-evalutation: 12/28/17 18:54 52-year-old female with a history of MRSA skin infections in the past who presents for evaluation of what is presumptively MRSA abscesses and cellulitis in the left lower extremity near her BKA. Given that she has had MRSA in the past will presumptively treat since she is allergic to clindamycin will utilize Bactrim. Current plan is for patient to be evaluated for probable incision and drainage of an abscess on the posterior aspect of the leg. - Vital Signs Vital signs: Temp Pulse Resp BP Pulse Ox 98.2 F 79 18 85/54 L 100 12/28/17 18:48 12/28/17 18:48 12/28/17 18:48 12/28/17 18:48 12/28/17 18:48 Doctor's Discharge - Discharge Referrals: SAFIA MCDONNELL PA [Primary Care Provider] - Follow up as needed
[2017-12-28] MEDS ORDERED: MUPIROCIN 2% OINTMENT 22 GM TP ONE (19:24)
--- NOTE | 2017-12-28 19:25 | ER Document Report ---
ED Skin Rash/Insect Bite/Abscs - General Chief Complaint: Skin Sore(s) Stated Complaint: LEG PAIN Time Seen by Provider: 12/28/17 18:43 Mode of Arrival: Wheelchair Information source: Patient Notes: 52-year-old female presents to ED for abscesses to her left thigh and behind her knee. 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 The past which was MRSA. She states she was treated with 2 antibiotics in the past and was clear after that. Patient is alert and oriented respirations regular and unlabored speaking in full sentences. TRAVEL OUTSIDE OF THE [place] IN LAST 30 DAYS: No - HPI Patient complains to provider of: Tender/swollen area Onset: Last week Onset/Duration: Gradual Quality of pain: Pressure Severity: Mild Pain Level: 1 Skin Character: Abscess Quality of rash: Painful Identify cause: Yes Exacerbated by: Denies Relieved by: Denies Similar symptoms previously: Yes Recently seen / treated by doctor: No - Related Data Allergies/Adverse Reactions: clindamycin Allergy (Verified 07/03/16 13:47) Past Medical History - General Information source: Patient, Relative - Social History Smoking Status: Never Smoker Cigarette use (# per day): No Chew tobacco use (# tins/day): No Smoking Education Provided: No Frequency of alcohol use: None Drug Abuse: None Lives with: Family Family History: Reviewed & Not Pertinent Patient has suicidal ideation: No Patient has homicidal ideation: No - Past Medical History Cardiac Medical History: Reports: None Pulmonary Medical History: Reports: Hx Pneumonia EENT Medical History: Reports: None Neurological Medical History: Reports: Hx Seizures - "hypoglycemic seizure" Endocrine Medical History: Reports: Hx Diabetes Mellitus Type 1 Renal/ Medical History: Reports: None Malignancy Medical History: Reports: None GI Medical History: Reports: None Musculoskeletal Medical History: Reports Hx Musculoskeletal Deformity - left bka Skin Medical History: Reports Hx Cellulitis, Reports Hx MRSA Psychiatric Medical History: Reports: Hx Bipolar Disorder, Hx Depression Traumatic Medical History: Reports: None Infectious Medical History: Reports: Hx MRSA Past Surgical History: Reports: Hx Orthopedic Surgery - l bk amp-06/04/17, Hx Vascular Surgery - RUE Picc - Immunizations Immunizations up to date: Yes Hx Diphtheria, Pertussis, Tetanus Vaccination: Yes - 2017 Review of Systems - Review of Systems Constitutional: No symptoms reported EENT: No symptoms reported Cardiovascular: No symptoms reported Respiratory: No symptoms reported Gastrointestinal: No symptoms reported Genitourinary: No symptoms reported Female Genitourinary: No symptoms reported Musculoskeletal: No symptoms reported Skin: Lesions Hematologic/Lymphatic: No symptoms reported Neurological/Psychological: No symptoms reported -: Yes All other systems reviewed and negative Physical Exam - Vital signs Vitals: Temp Pulse Resp BP Pulse Ox 98.2 F 79 18 85/54 L 100 12/28/17 18:48 12/28/17 18:48 12/28/17 18:48 12/28/17 18:48 12/28/17 18:48 Interpretation: Normal - General General appearance: Appears well, Alert - HEENT Head: Normocephalic, Atraumatic Eyes: Normal Pupils: PERRL - Respiratory Respiratory status: No respiratory distress Chest status: Nontender Breath sounds: Normal Chest palpation: Normal - Cardiovascular Rhythm: Regular Heart sounds: Normal auscultation Murmur: No - Abdominal Inspection: Normal Distension: No distension Bowel sounds: Normal Tenderness: Nontender Organomegaly: No organomegaly - Back Back: Normal, Nontender - Extremities General upper extremity: Normal inspection, Nontender, Normal color, Normal ROM , Normal temperature General lower extremity: Normal inspection, Nontender, Normal color, Normal ROM , Normal temperature, Normal weight bearing. No: Araceli's sign - Neurological Neuro grossly intact: Yes Cognition: Normal Orientation: AAOx4 [place] Coma Scale Eye Opening: Spontaneous [place] Coma Scale Verbal: Oriented [place] Coma Scale Motor: Obeys Commands [place] Coma Scale Total: 15 Speech: Normal Motor strength normal: LUE, RUE, LLE, RLE Sensory: Normal - Psychological Associated symptoms: Normal affect, Normal mood - Skin Skin Temperature: Warm Skin Moisture: Dry Skin Color: Normal Skin irregularity: Abscess Location of irregularity: Extremities - left upper thing distal thigh and behind the knee Irregularity with: Swelling, Tenderness, Warmth Course - Re-evaluation Re-evalutation: 12/29/17 01:54 Patient was treated with Bactrim and Keflex and Bactroban for her 3 abscesses to the left upper leg one at the proximal thigh 1 of the distal thigh and one medial knee. All 3 sites were I&D and wound culture sent. - Vital Signs Vital signs: Temp Pulse Resp BP Pulse Ox 98.5 F 78 16 127/79 H 97 12/28/17 19:55 12/28/17 19:55 12/28/17 19:55 12/28/17 19:55 12/28/17 19:55 Procedures - Incision and Drainage Left Upper Thigh Time completed: 19:38 Type: Simple Anesthetic type: Other - 0 mL's of anesthetic: 0 Blade size: Other - 18 ga I&D procedure: Betadine prep applied Incision Method: Incision made with needle Amount/type of drainage: moderate purulent Left Distal Thigh Time completed: 19:39 Type: Simple Anesthetic type: Other - 0 mL's of anesthetic: 0 Blade size: Other - 18 ga I&D procedure: Betadine prep applied Incision Method: Incision made with needle Amount/type of drainage: moderate amount purulent Left Medial Knee Time completed: 19:40 Type: Simple Anesthetic type: Other - 0 mL's of anesthetic: 0 Blade size: Other - 18 ga I&D procedure: Betadine prep applied Incision Method: Incision made with needle Amount/type of drainage: moderate amount purulent Discharge - Discharge Clinical Impression: Abscess of left thigh Condition: Stable Disposition: HOME, SELF-CARE Additional Instructions: ABSCESS: You have an abscess (boil). This a pus-forming infection, usually due to staph. Some boils may be left to drain on their own, but most require lancing. From the time the tender lump first appears, it may be three or four days before the abscess is ready to emely. Local heat and rest help at this stage of treatment. An antibiotic may prevent spread of the infection. Once the abscess is opened, packing may be placed into it. This is done so pus is not sealed inside by premature closure of the cavity. The packing will be removed at your follow-up visit or you may be advised to remove it yourself at home. Sometimes this packing must be replaced a few times during healing. The wound will heal with surprisingly little scar. Depending on the size and location of an abscess, healing can take one to four weeks. You may shower and wash the area around the incision site two or three times a day. Antibiotics may be prescribed, but are usually not necessary after an abscess has been drained. If you develop fever, chills, worsening pain, or increasing swelling in the area, call the doctor or return immediately. POST INCISION AND DRAINAGE: You have had an incision made to allow drainage of an abscess. The incision must remain open so that pus and debris can drain from the wound. If the abscess cavity is large, packing is placed. This keeps the tissues from collapsing and trapping pus inside, while the body shrinks the cavity. The packing may need to be replaced every day or two. The physician will instruct you on the packing. Keep a bulky dressing over the area. Replace it if it becomes saturated with blood or pus. Do not disturb the packing (if present). You may shower and cleanse the area with gentle soap and warm water two or three times a day. Local warmth may be soothing, and may promote faster healing. Return if you develop high fever or chills, or if you note spreading redness, increasing swelling, or increasing tenderness. CEPHALEXIN: The antibiotic you've been prescribed is a member of the cephalosporin class. This type of antibiotic covers a wide variety of infections, including those of the skin, lungs, and urinary tract. It's useful for staph infections. This antibiotic is slightly similar to the penicillin family. In rare cases , a person who is allergic to penicillin will also be allergic to this medication. If you have had a severe allergic reaction to penicillin, and have not taken this antibiotic since that time, notify your doctor. Antibiotics which cover many germs ("broad spectrum" antibiotics) are more likely to cause diarrhea or "yeast" infections. Women prone to vaginal yeast problems may suffer an attack after taking this antibiotic. In infants, oral thrush (white spots "stuck" on the cheek) or yeast diaper rash may result. See your doctor if these problems occur. Call at once if you develop itching, hives , shortness of breath, or lightheadedness. TRIMETHOPRIM-SULFA: You have been given a prescription for trimethoprim-sulfa (TMS, Septra, Bactrim). This is a combination antibiotic of the sulfa class, often used for urinary tract infections, middle ear infections, bronchitis, shigella intestinal infection, and Pneumocystis pneumonia. TMS is usually well-tolerated. Occasional side effects include nausea and decreased appetite. Septra is not recommended for infants less than two months of age. Do not take this medication if you have experienced severe side effects or allergy to sulfa medicine. You should stop this medicine at once and contact your physician if you develop any rash, joint pain, shortness of breath, bruising, or jaundice ( yellow color in the skin), or if you develop any other new or unusual symptoms. Epsom Salt Soaks Soak the wound area in a container of warm epsom salt water. If you can't get the wound area into a bucket or daigle, use a folded towel soaked in the epsom salt solution and apply to the area. Use clean hot tap water (about the temperature of a very warm bath), mixing in about one (1) teaspoon for every pint of water. Two gallon --> 16 teaspoons Epsom Salts One gallon --> 8 teaspoons Epsom Salts Two quarts --> 4 teaspoons Epsom Salts One quart --> 2 teaspoons Epsom Salts Soak the wound for about 20 minutes while gently moving it around in the water. Repeat this four (4) times a day. Bactroban Ointment Bactroban is very effective against the germs that cause infection within the skin. It's useful for impetigo and other superficial infections. Deeper infections require antibiotics by mouth or by shot. Apply the medicine three times a day for one week, or longer if your doctor has advised it. Stop the medicine and call your doctor if you develop large blisters, severe itching, increasing pain, swelling, fever, or spreading redness. FOLLOW-UP CARE: Most simple abscesses will not require a follow up visit. If you had packing placed in the abscess, remove it as instructed by the physician. If you have been referred to a physician for follow-up care, call the physicians office for an appointment as you were instructed or within the next two days. If you experience worsening or a significant change in your symptoms, return to the Emergency Department at any time for re-evaluation. Prescriptions: Cephalexin Monohydrate [Keflex 500 mg Capsule] 500 mg PO Q6H 5 Days capsule Mupirocin [Bactroban 2% Ointment 22 gm] 22 applic TP TID #2 tube Sulfamethoxazole/Trimethoprim [Bactrim Ds Tablet] 1 each PO BID #20 tablet Referrals: SAFIA MCDONNELL PA [Primary Care Provider] - Follow up as needed
[2017-12-28 19:56] VITALS: BP 127/79
== END 2017-12-28 19:56 | disposition home or self-care (01) ==
LOC: ER 18:24
DX: L02.416 Cutaneous abscess of left lower limb (principal); E10.9 Type 1 diabetes mellitus without complications; Z89.512 Acquired absence of left leg below knee; Z86.14 Personal history of Methicillin resistant Staphylococcus aureus infection; Z88.1 Allergy status to other antibiotic agents
CPT/HCPCS: 99283; 87070; 87205; 87077; 87186; 10061; J3490

== ENCOUNTER → 2017-12-29 | Outpatient (CLI) | payer OTHER ==
--- NOTE | 2017-12-29 15:49 | WOMENS IMAGING REPORT ---
EXAM DESCRIPTION: BILAT SCREENING MAMMO W/CAD COMPLETED DATE/TIME: 12/29/2017 3:14 pm REASON FOR STUDY: SCREENING MAMMO Z12.31 ENCNTR SCREEN MAMMOGRAM FOR MALIGNANT NEOPLASM OF [place] COMPARISON: 2016 TECHNIQUE: Standard craniocaudal and mediolateral oblique views of each breast recorded using digita l acquisition. LIMITATIONS: None. FINDINGS: No masses, calcifications or architectural distortion. No areas of suspicion. Read with the assistance of CAD. .[facility] - R2 Cenova Version 1.3 .[facility] Imaging - R2 Cenova Version 1.3 .[facility] Imaging - R2 Cenova Version 2.4 .[facility] - R2 Cenova Version 2.4 .[facility] - R2 Boiler Service Technician Version 9.2 IMPRESSION: NORMAL MAMMOGRAM. BIRADS 1. BREAST DENSITY: b. There are scattered areas of fibroglandular density. BIRAD: 1 NEGATIVE RECOMMENDATION: ROUTINE SCREENING COMMENT: The patient has been notified of the results by letter per SA requirements. Additional no tification policies are in place for contacting patient with suspicious or incomplete findings. Quality ID #[id number]: The [employer] recommends an annual screening mammogram for women aged 40 years or over. This facility utilizes a reminder system to ensure that all patients receive reminder letters, and/or direct phone calls for appointments. This includes reminders for routine scr eening mammograms, diagnostic mammograms, or other Breast Imaging Interventions when appropriate. Th is patient will be placed in the appropriate reminder system. The [employer] (A[employer]) has developed recommendations for screening MRI of the breast s in certain patient populations, to be used in conjunction with mammography. Breast MRI surveillanc e may be appropriate for women with more than 20% lifetime risk of developing breast cancer as deter mined by genetic testing, significant family history of the disease, or history of mantle radiation f or Hodgkins Disease. ACR Practice Guidelines 2008. TECHNICAL DOCUMENTATION: FINDING NUMBER: (1) ASSESSMENT: (1) JOB ID: [id number] [employer]- All Rights Reserved Reading location - IP/workstation name: [email or web address]-[email or web address]
== END ==
LOC: WI 14:01
PROVIDERS: ATTEND Physician Assistant
DX: Z12.31 Encounter for screening mammogram for malignant neoplasm of breast (principal)
CPT/HCPCS: 77067

== ENCOUNTER 2018-04-01 10:01 | Emergency (ER) | payer OTHER ==
[2018-04-01] MEDS ORDERED: ONDANSETRON HCL INJ/PF 4 MG/2 ML SDV IV ONE (10:38)
[2018-04-01] MEDS ORDERED: FENTANYL CITRATE INJ/PF 100 MCG/2 ML AMPUL IV ONE (10:38)
[2018-04-01] MEDS ORDERED: NORMAL SALINE 1000 ML 1,000 ML IV ONE (10:38)
[2018-04-01] MEDS ORDERED: KETOROLAC TROMETHAMINE INJ/PF 30 MG/1 ML SDV IV ONE (10:38)
[2018-04-01] MEDS ORDERED: DICYCLOMINE HCL INJ 20 MG/2 ML AMPULE IM ONE (10:40)
--- NOTE | 2018-04-01 10:41 | ER Document Report ---
ED Medical Screen (RME) - General Chief Complaint: Abdominal Pain Stated Complaint: ABDOMINAL PAIN Time Seen by Provider: 04/01/18 10:33 Mode of Arrival: Ambulatory Information source: Patient Notes: 53 years old female with chronic history of abdominal pain and since today with 7-day history of abdominal pain progressively increased in intensity. Associated with nausea no vomiting. Also had loose bowel movement. Denies any fever chills or other constitutional symptoms. She seems to be in acute abdominal pain. No obvious tenderness noted. TRAVEL OUTSIDE OF THE [place] IN LAST 30 DAYS: No - Related Data Allergies/Adverse Reactions: clindamycin Allergy (Verified 04/01/18 10:03) Past Medical History - Past Medical History Cardiac Medical History: Denies: Hx Coronary Artery Disease, Hx Heart Attack, Hx Hypertension Pulmonary Medical History: Reports: Hx Pneumonia Denies: Hx Asthma, Hx Bronchitis, Hx COPD Neurological Medical History: Reports: Hx Seizures - "hypoglycemic seizure". Denies: Hx Cerebrovascular Accident Endocrine Medical History: Reports: Hx Diabetes Mellitus Type 1, Hx Diabetes Mellitus Type 2 Renal/ Medical History: Denies: Hx Peritoneal Dialysis Musculoskeltal Medical History: Denies Hx Arthritis, Reports Hx Musculoskeletal Deformity - left bka Skin Medical History: Reports Hx Cellulitis, Reports Hx MRSA Psychiatric Medical History: Reports: Hx Bipolar Disorder, Hx Depression Infectious Medical History: Reports: Hx MRSA Past Surgical History: Reports: Hx Orthopedic Surgery - l bk amp-06/04/17, Hx Vascular Surgery - [facility] - Immunizations Immunizations up to date: Yes Hx Diphtheria, Pertussis, Tetanus Vaccination: Yes - 2016 Physical Exam - Vital signs Vitals: Temp Pulse Resp BP Pulse Ox 97.4 F 88 24 H 97/63 L 100 04/01/18 10:12 04/01/18 10:12 04/01/18 10:12 04/01/18 10:12 04/01/18 10:12 Course - Vital Signs Vital signs: Temp Pulse Resp BP Pulse Ox 97.4 F 88 24 H 97/63 L 100 04/01/18 10:12 04/01/18 10:12 04/01/18 10:12 04/01/18 10:12 04/01/18 10:12 Doctor's Discharge - Discharge Referrals: SAFIA MCDONNELL PA [Primary Care Provider] - Follow up as needed
[2018-04-01 11:46] LABS: ABSOLUTE BASOPHILS # (AUTO) 0.1 10^3/uL (0.0-0.2); ABSOLUTE EOSINOPHILS # (AUTO) 0.1 10^3/uL (0.0-0.6); ABSOLUTE LYMPHOCYTES (AUTO) 1.2 10^3/uL (0.5-4.7); ABSOLUTE MONOCYTES (AUTO) 0.7 10^3/uL (0.1-1.4); ABSOLUTE NEUT (AUTO) 8.4 10^3/uL (1.7-8.2); BASOPHILS % (AUTO) 0.6 % (0-2); EOSINOPHILS % (AUTO) 0.5 % (0-6); HEMATOCRIT 33.4 % (36.0-47.0); HEMOGLOBIN 11.1 g/dL (12.0-15.5); LYMPHOCYTES % (AUTO) 11.5 % (13-45); MEAN CORPUSCULAR HEMOGLOBIN 31.1 pg (27.0-33.4); MEAN CORPUSCULAR HGB CONC 33.4 g/dL (32.0-36.0); MEAN CORPUSCULAR VOLUME 93 fl (80-97); MONOCYTES % (AUTO) 7.1 % (3-13); PLATELET COUNT 298 10^3/uL (150-450); RED BLOOD COUNT 3.59 10^6/uL (3.72-5.28); SEGMENTED NEUTROPHILS % (AUTO) 80.3 % (42-78); TOTAL CELLS COUNTED % (AUTO) 100 %; WHITE BLOOD COUNT 10.4 10^3/uL (4.0-10.5)
[2018-04-01 11:59] LABS: ALANINE AMINOTRANSFERASE 22 U/L (9-52); ALBUMIN 3.2 g/dL (3.5-5.0); ALKALINE PHOSPHATASE 276 U/L (38-126); ANION GAP 16 (5-19); ASPARTATE AMINO TRANSFERASE 27 U/L (14-36); BILIRUBIN,DIRECT 0.6 mg/dL (0.0-0.4); BILIRUBIN,TOTAL 1.5 mg/dL (0.2-1.3); BLOOD UREA NITROGEN 23 mg/dL (7-20); CALCIUM 8.8 mg/dL (8.4-10.2); CARBON DIOXIDE 23 mmol/L (22-30); CHLORIDE 96 mmol/L (98-107); GLUCOSE 303 mg/dL (75-110); LIPASE 79.2 U/L (23-300); POTASSIUM 5.2 mmol/L (3.6-5.0); TOTAL PROTEIN 6.9 g/dL (6.3-8.2)
--- NOTE | 2018-04-01 12:22 | RADIOLOGY REPORT (SQ) ---
EXAM DESCRIPTION: ACUTE ABDOMEN SERIES COMPLETED DATE/TIME: 04/01/2018 11:29 am REASON FOR STUDY: Abdominal pain COMPARISON: Chest film 06/26/2016, 04/10/2016 NUMBER OF VIEWS: Three views. TECHNIQUE: Frontal chest, supine abdomen and upright abdomen radiographic images acquired. LIMITATIONS: None. FINDINGS: CHEST: No acute infiltrates. No pleural effusion or pneumothorax. Cardiac silhouette siz e, thuy unremarkable. Multiple old healed right rib fractures FREE AIR: None. No abnormal gas collections. BOWEL GAS PATTERN: Nonobstructive pattern. No dilated loops or air fluid levels. CALCIFICATIONS: Multiple calcifications in the pelvis likely phleboliths HARDWARE: None in the abdomen. SOFT TISSUES: No gross mass or suggestion of organomegaly. BONES: No acute fracture. No worrisome bone lesions. OTHER: No other significant finding. IMPRESSION: NO RADIOGRAPHIC EVIDENCE FOR ACUTE ABDOMINAL DISEASE. TECHNICAL DOCUMENTATION: JOB ID: [id number] [employer]- All Rights Reserved Reading location - IP/workstation name: [email or web address]
--- NOTE | 2018-04-01 12:34 | ER Document Report ---
ED General - General Chief Complaint: Abdominal Pain Stated Complaint: ABDOMINAL PAIN Time Seen by Provider: 04/01/18 10:33 Mode of Arrival: Ambulatory TRAVEL OUTSIDE OF THE [place] IN LAST 30 DAYS: No - HPI Notes: Patient is a 53-year-old female that presents to the emergency department for chief complaint of abdominal pain. Patient reports history of chronic abdominal pain. Today she had worsening of her pain. She reports it is a sharp epigastric pain. The pain is nonradiating. She had associated nausea with no vomiting or diarrhea. She denies any fevers or chills. She states she had a urea breath test done by her primary care doctor recently but does not have the results back yet. She did also recently have a EGD that showed gastritis with no ulcers. She has had a colonoscopy recently which showed colon polyps. Past Medical History: Diabetes, hypothyroidism, depression Past Surgical History: Left BKA Social History: Denies drugs alcohol or tobacco Family History: Reviewed and noncontributory for presenting illness Allergies: Reviewed, see documented allergy list. REVIEW OF SYSTEMS: CONSTITUTIONAL : No fever No chills No diaphoresis No recent illness EENT: No vision changes No congestion No sore throat CARDIOVASCULAR: No chest pain No palpitations RESPIRATORY: No shortness of breath No cough No difficulty breathing GASTROINTESTINAL: abdominal pain nausea No vomiting No diarrhea GENITOURINARY: No dysuria No hematuria No difficulty urinating MUSCULOSKELETAL: No back pain No leg pain No arm pain SKIN: No rashes No lesions LYMPHATIC: No swollen, enlarged glands. NEUROLOGICAL: No lightheadedness No headache No weakness No paresthesias PSYCHIATRIC: No anxiety No depression PHYSICAL EXAMINATION: Vital signs reviewed, nursing noted reviewed. GENERAL: Well-appearing, well-nourished and in no acute distress. HEAD: Atraumatic, normocephalic. EYES: Eyes appear normal, extraocular movements intact, sclera anicteric, conjunctiva are normal. ENT: nares patent, oropharynx clear without exudates. Moist mucous membranes. NECK: Normal range of motion, supple without lymphadenopathy LUNGS: Breath sounds clear to auscultation bilaterally and equal. No wheezes rales or rhonchi. HEART: Regular rate and rhythm without murmurs ABDOMEN: Soft, mild epigastric tenderness, normoactive bowel sounds. No rebound , guarding, or rigidity. No masses appreciated. EXTREMITIES: Nontender, good range of motion, no pitting or edema. NEUROLOGICAL: No focal neurological deficits. Moves all extremities spontaneously Motor and sensory grossly intact on exam. PSYCH: Normal mood, normal affect. SKIN: Warm, Dry, normal turgor, no rashes or lesions noted on exposed skin - Related Data Allergies/Adverse Reactions: clindamycin Allergy (Verified 04/01/18 10:03) Past Medical History - General Information source: Patient - Social History Smoking Status: Never Smoker Chew tobacco use (# tins/day): No Frequency of alcohol use: None Drug Abuse: None Family History: Reviewed & Not Pertinent Patient has suicidal ideation: No Patient has homicidal ideation: No - Past Medical History Cardiac Medical History: Denies: Hx Coronary Artery Disease, Hx Heart Attack, Hx Hypertension Pulmonary Medical History: Reports: Hx Pneumonia Denies: Hx Asthma, Hx Bronchitis, Hx COPD Neurological Medical History: Reports: Hx Seizures - "hypoglycemic seizure". Denies: Hx Cerebrovascular Accident Endocrine Medical History: Reports: Hx Diabetes Mellitus Type 1, Hx Diabetes Mellitus Type 2 Renal/ Medical History: Denies: Hx Peritoneal Dialysis Musculoskeletal Medical History: Denies Hx Arthritis, Reports Hx Musculoskeletal Deformity - left bka Skin Medical History: Reports Hx Cellulitis, Reports Hx MRSA Psychiatric Medical History: Reports: Hx Bipolar Disorder, Hx Depression Infectious Medical History: Reports: Hx MRSA Past Surgical History: Reports: Hx Orthopedic Surgery - l bk amp-06/04/17, Hx Vascular Surgery - [facility] - Immunizations Immunizations up to date: Yes Hx Diphtheria, Pertussis, Tetanus Vaccination: Yes - 2016 Physical Exam - Vital signs Vitals: Temp Pulse Resp BP Pulse Ox 97.4 F 88 24 H 97/63 L 100 04/01/18 10:12 04/01/18 10:12 04/01/18 10:12 04/01/18 10:12 04/01/18 10:12 Course - Re-evaluation Re-evalutation: 04/01/18 12:32 Vitals reviewed. Nursing notes reviewed. Patient received medication in triage and on my exam states she is feeling much better. Her epigastric pain is almost completely resolved. She does have history of gastritis and is awaiting the results of a urea breath test checking for H. pylori. Patient was encouraged to call her primary care doctor's office and inquire about the results of her breath test. She will be given a prescription for omeprazole to take at home for symptomatic management. She does have a prescription for Zofran that she already takes at home. Her abdomen currently has no peritoneal signs. X-ray shows no obstruction. Further workup of her chronic abdominal pain not currently indicated since she is feeling better. Her lab work does show some baseline renal insufficiency which is not new for her. Patient's glucose is elevated at 303 however she has not taken her insulin yet today. She is not in diabetic ketoacidosis. I encouraged her to take her home insulin as prescribed. She will be discharged in stable condition with return precautions. Laboratory 04/01/18 04/01/18 04/01/18 11:33 11:33 11:33 WBC 10.4 RBC 3.59 L Hgb 11.1 L Hct 33.4 L MCV 93 MCH 31.1 MCHC 33.4 RDW 14.0 Plt Count 298 Seg Neutrophils % 80.3 H Lymphocytes % 11.5 L Monocytes % 7.1 Eosinophils % 0.5 Basophils % 0.6 Absolute Neutrophils 8.4 H Absolute Lymphocytes 1.2 Absolute Monocytes 0.7 Absolute Eosinophils 0.1 Absolute Basophils 0.1 Sodium 135.0 L Potassium 5.2 H Chloride 96 L Carbon Dioxide 23 Anion Gap 16 BUN 23 H Creatinine 1.29 H Est GFR ( Amer) 52 L Est GFR (Non-Af Amer) 43 L Glucose 303 H Calcium 8.8 Total Bilirubin 1.5 H Direct Bilirubin 0.6 H Neonat Total Bilirubin Not Reportable Neonat Direct Bilirubin Not Reportable Neonat Indirect Bili Not Reportable AST 27 ALT 22 Alkaline Phosphatase 276 H Ammonia < 8.7 L Total Protein 6.9 Albumin 3.2 L Lipase 79.2 Acute Abdomen Series 04/01/18 10:39 IMPRESSION: NO RADIOGRAPHIC EVIDENCE FOR ACUTE ABDOMINAL DISEASE. - Vital Signs Vital signs: Temp Pulse Resp BP Pulse Ox 97.4 F 88 24 H 97/63 L 100 04/01/18 10:12 04/01/18 10:12 04/01/18 10:12 04/01/18 10:12 04/01/18 10:12 - Laboratory Result Diagrams: 04/01/18 11:33 04/01/18 11:33 Laboratory results interpreted by me: 04/01/18 04/01/18 04/01/18 11:33 11:33 11:33 RBC 3.59 L Hgb 11.1 L Hct 33.4 L Seg Neutrophils % 80.3 H Lymphocytes % 11.5 L Absolute Neutrophils 8.4 H Sodium 135.0 L Potassium 5.2 H Chloride 96 L BUN 23 H Creatinine 1.29 H Est GFR ( Amer) 52 L Est GFR (Non-Af Amer) 43 L Glucose 303 H Total Bilirubin 1.5 H Direct Bilirubin 0.6 H Alkaline Phosphatase 276 H Ammonia < 8.7 L Albumin 3.2 L Discharge - Discharge Clinical Impression: Abdominal pain Qualifiers: Abdominal location: epigastric Qualified Code(s): R10.13 - Epigastric pain Condition: Stable Disposition: HOME, SELF-CARE Instructions: Abdominal Pain ([facility]) Additional Instructions: Please return to the emergency department if you have any worsening, or concern of your symptoms. Please return to the emergency department if you develop chest pain, difficulty breathing, severe abdominal pain, or ongoing vomiting. Please follow-up with your primary care physician in 2-3 days and any other recommended physicians. If prescribed, take all medications as directed. If you have any questions or concerns do not hesitate to return the emergency department for evaluation. Call your primary care doctor and ask for the results of your urea breath test Prescriptions: Omeprazole 40 mg PO DAILY #30 capsule. Referrals: SAFIA MCDONNELL PA [Primary Care Provider] - Follow up in 3-5 days
[2018-04-01 12:51] VITALS: BP 116/66
== END 2018-04-01 12:49 | disposition home or self-care (01) ==
LOC: ER 10:01
DX: R10.13 Epigastric pain (principal); G89.29 Other chronic pain; R11.0 Nausea; N28.9 Disorder of kidney and ureter, unspecified; E11.65 Type 2 diabetes mellitus with hyperglycemia; Z79.4 Long term (current) use of insulin; Z88.1 Allergy status to other antibiotic agents; Z87.19 Personal history of other diseases of the digestive system
CPT/HCPCS: 99284; 96372; 96361; 96374; 96375; 36415; 82140; 83690; 85025; 80053; 74022; J0500; J3010; J1885; J2405; J7030